=== PATIENT | female | born 1985 | race Caucasian/White ===

== ENCOUNTER 2019-09-28 16:23 | Emergency (ER) | payer BC, SELFPAY ==
[2019-09-28 16:27] VITALS: BP 116/76; PULSE 87; RESP 20; TEMP 37.1; O2SAT 100
--- NOTE | 2019-09-28 17:26 | ED.GENADULT ---
HPI - General Adult General Chief complaint: Upper Respiratory Infection Stated complaint: fatigue/body aches Time Seen by Provider: 09/28/19 17:18 Source: patient, RN notes reviewed and old records reviewed Mode of arrival: ambulatory Limitations: no limitations History of Present Illness HPI narrative: Patient presents today complaining of fatigue times approximately 2 months with body aches, chills, sweats, and fever up to 99.4 x 2 days. States she just wants to sleep. She has seen by her PCP with multiple labs drawn (H&H, B12, TSH) and these have been normal. MD complaint: fatigue, body aches Related Data Home Medications Medication Instructions Recorded Confirmed sertraline 50 mg tablet 50 mg PO DAILY 07/04/19 07/04/19 Allergies Allergy/AdvReac Type Severity Reaction Status Date / Time cefdinir Allergy Mild unknown Verified 09/09/19 12:15 ciprofloxacin Allergy Unknown unknown Verified 09/09/19 12:15 latex Allergy Unknown unknown Verified 09/09/19 12:15 meperidine Allergy Unknown unknown Verified 09/09/19 12:15 metoclopramide Allergy Unknown JERKING OF Verified 09/09/19 12:15 GENERAL BODY Penicillins Allergy Unknown unknown Verified 09/09/19 12:15 Sulfa (Sulfonamide Allergy Unknown unknown Verified 09/09/19 12:15 Antibiotics) Review of Systems Review of Systems: Narrative: CONSTITUTIONAL: + Body aches, sweats, chills, fatigue EYES: Denies visual changes, redness, or discharge. ENT: Denies rhinorrhea, congestion, sore throat, or otalgia. CARDIOVASCULAR: Denies chest pain, palpitations, or edema. RESPIRATORY: Denies cough or dyspnea. GASTROINTESTINAL: Denies abdominal pain, nausea, vomiting, or diarrhea. GENITOURINARY: Denies dysuria or hematuria. SKIN: Denies rash, itching, or wounds. MUSCULOSKELETAL: Denies back pain, joint pain, or myalgia. NEUROLOGIC: Denies headache, numbness, tingling, or weakness. PSYCH: Denies depression or anxiety. [facility] Past Medical History Medical History (Updated 09/28/19 @ 17:45 by Nia Hernandez, [facility], ) Acute renal failure Anxiety Depression Leukemia Surgical History Surgical History H/O dilation and curettage History of cholecystectomy 2019 Social History Social History Smoking status: Never smoker Tobacco type: cigarettes Second hand tobacco smoke exposure: No Alcohol intake: current Substance use: never Substance use type: does not use Additional living arrangements comments: with two children Additional occupation/education comments: RN [employer] Gender identity (if verbalized by the patient): Female Spiritual care concerns: No Agree to blood products: No Comments At time of signature, I have reviewed and agree with nursing past medical, surgical, social and family history unless otherwise noted. Please see nursing chart for further information. There is no relevant family history pertinent to the presenting complaint Exam Narrative: Exam Narrative: GENERAL: Mildly ill-appearing, well-nourished, and in no acute distress. Shivering HEAD: Normocephalic, atraumatic. EYES: EOMI. No redness or drainage. Conjunctivae normal. ENT: Mucous membranes pink and moist. Nares clear. No rhinorrhea. TMs normal bilaterally. Throat normal. Uvula midline. NECK: Normal AROM. Supple. Right anterior cervical chain lymphadenopathy. CHEST: No respiratory distress. Clear to auscultation. HEART: Regular rate and rhythm. No murmur appreciated. Normal peripheral pulses. EXTREMITIES: Normal range of motion. No edema. SKIN: Warm, dry, no rash. NEURO: No focal deficits. Alert and oriented x3. Gait steady. PSYCH: Normal affect. No signs of depression or anxiety. Course Vital Signs Vital signs: Vital Signs Temperature 98.7 F 09/28/19 16:27 Pulse Rate 87 09/28/19 16:27 Respiratory Rate 20 09/28/19
[2019-09-28 17:33] VITALS: TEMP 37.6
== END 2019-09-28 17:52 | disposition home or self-care (01) ==
PROVIDERS: Emergency Provider Nurse Practitioner; PCP Family Medicine
DX: B34.9 Viral infection, unspecified (principal); F41.9 Anxiety disorder, unspecified; F32.9 Major depressive disorder, single episode, unspecified; C91.01 Acute lymphoblastic leukemia, in remission
CPT/HCPCS: 99211; G0463